=== PATIENT | male | born 1950 | race Caucasian/White ===

== ENCOUNTER → 2018-03-12 10:50 | Outpatient (CLI) | payer OTHER, SELFPAY ==
--- NOTE | 2018-03-12 | DI.MRI.S_ITS ---
PROCEDURE: MR KNEE RT WO CON INDICATIONS: PAIN IN RIGHT KNEE TECHNIQUE: Noncontrast sagittal PD fast spin echo and T2 fast spin echo with fat saturation, sagittal 3-D FLASH with fat saturation; coronal T1 spin echo and PD fast spin echo with fat saturation, and axial PD fast spin echo with fat saturation through the knee. COMPARISON: None. FINDINGS: Image quality: Excellent. Menisci: There is peripheral displacement of the medial meniscus bowing medial collateral ligament. Complex tear involving body and posterior horn of medial meniscus is seen extending to both superior and inferior articulating surfaces. There is also focal complex tear involving anterior horn of lateral meniscus extending to superior articulating surface. The meniscal root ligaments appear intact. Cruciate ligaments: The anterior and posterior cruciate ligaments appear intact. Medial structures: The medial collateral ligament appears intact. The posterior oblique ligament, semimembranosus tendon insertions, oblique popliteal ligament, and meniscocapsular junction appear intact. Visualized portions of the pes anserinus tendons appear normal. No abnormal bursal fluid. Lateral structures: The lateral collateral ligament, long and short heads of the biceps femoris tendon appear intact. The popliteus tendon appears normal; the popliteofibular ligament appears intact. The posterosuperior and anteroinferior popliteomeniscal fascicles appear intact. The arcuate and fabellofibular ligaments appear intact, on either side of the lateral inferior geniculate artery. Iliotibial band appears normal. Anterior structures: The quadriceps and patellar tendons appear intact. Patellar alignment is normal. No femoral trochlear dysplasia or ventral trochlear prominence. No edema in the infrapatellar fat pad. Bones and cartilage: There is wobw-[id number] tricompartment osteoarthritis most prominent in the medial femoral-tibial compartment with joint space narrowing, thinning of articulating cartilages and subchondral sclerosis/edema. There is edema and linear hypointensity involving weightbearing portion of medial tibial plateau, concerning for nondepressed subchondral fracture in this area.. Low-grade chondromalacia involving lateral facet of patella cartilage is seen. Joint space: There is small to moderate amount of joint fluid. No Mario's cyst. Normal appearing synovial plicae are incidentally noted. IMPRESSION: 1. Edema involving weightbearing portion of medial femoral condyle with internal linear hypointense signal and measures approximately 5 x 10 mm in size concerning for subchondral fracture in this area versus osteochondral injury. 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 Low-grade chondromalacia patella. 2. Complex tear involving body and posterior horn of medial meniscus extending to both superior and inferior articulating surfaces. Complex tear involving anterior horn of lateral meniscus extending to superior articulating surface. 3. Cruciate ligaments are intact. Dictated by: Paul Vernon M.D. on 03/12/2018 at 12:58 Approved by: Paul Vernon M.D. on 03/12/2018 at 13:04
== END ==
PROVIDERS: PCP Family Medicine; Visit Provider Family Medicine
DX: S83.271A Complex tear of lateral meniscus, current injury, right knee, initial encounter (principal); S83.231A Complex tear of medial meniscus, current injury, right knee, initial encounter; M25.561 Pain in right knee; M17.11 Unilateral primary osteoarthritis, right knee; M22.41 Chondromalacia patellae, right knee; R60.0 Localized edema
CPT/HCPCS: 73721

== ENCOUNTER → 2018-07-20 11:07 | Outpatient (CLI) | payer OTHER, SELFPAY ==
--- NOTE | 2018-07-20 | DI.MRI.S_ITS ---
PROCEDURE: MR LUMBAR SPINE WO CON INDICATIONS: POLYNEUROPATHY, Ankylosing spondylitis of unspecified sites TECHNIQUE: Noncontrast sagittal T1 spin echo and T2 fast echo, sagittal STIR, axial T1 and T2 fast spin echo through the lumbar spine. In cases with scoliosis, additional coronal T2 fast spin echo may be performed. COMPARISON: [facility], CT, IVP (ABD & PEL WWO CONTRAST), 08/03/2012, 9:14. FINDINGS: Image quality: Excellent. Alignment and Curvature: Mild dextroconvex scoliotic curvature is seen. Minimal retrolisthesis is seen at T12-L1 and L1-L2. Minimal anterolisthesis is seen at the L4-L5 level. Bone Marrow: Marrow is of normal overall signal. No acute vertebral body compression fractures. Scattered foci are seen, which are hyperintense on T1-weighted and T2-weighted imaging, which are most consistent with benign vertebral body hemangiomas. Sacral fatty metaplasia can be seen. Spinal Cord: Conus medullaris terminates at the T12-L1 level. Visualized cord demonstrates normal signal and size. Paraspinous Soft Tissues: No paravertebral masses. T12-L1: Moderate loss of disc height is seen. Loss of disc signal is seen. Moderate generalized disc bulge is seen. Moderate facet joint hypertrophy is seen. There is at least moderate bilateral neural foraminal narrowing seen. Moderate central canal narrowing is seen. L1-L2: Moderate loss of disc height is seen. Loss of disc signal is seen. At least moderate disc bulge is seen. Moderate facet joint hypertrophy is seen. There is at least moderate right-sided and moderate to severe left-sided neural foraminal narrowing seen. There is a degree of compression seen upon the exiting nerve roots. Moderate central canal narrowing is seen. L2-L3: Mild to moderate loss of disc height and disc signal are seen. Moderate disc bulge is seen, which is eccentric to the left. There is moderate to severe left-sided and moderate right-sided neural foraminal narrowing seen. There is a degree of compression seen upon the exiting left L2 nerve root. Severe central canal narrowing is seen, as on series 4 image 18. L3-L4: The disc height is well-preserved. Loss of disc signal is seen at this level. Moderate generalized disc bulge is seen. Moderate to prominent facet hypertrophy is seen. There is associated moderate hypertrophy of the ligamentum flavum. Moderate bilateral neural foraminal narrowing is seen, left worse than right. Severe central canal narrowing is seen, as on series 8 image 22. L4-L5: The disc height is well-preserved. Loss of disc signal is seen at this level. Moderate generalized disc bulge is seen. Prominent facet hypertrophy is seen, with associated moderate hypertrophy of the ligamentum flavum. There is at least moderate bilateral neural foraminal narrowing seen, left worse than right. There is a degree of compression seen upon the exiting nerve roots. Severe central canal narrowing is seen, as on series 8 image 27. L5-S1: Moderate loss of disc height is seen. Loss of disc signal is seen. Moderate disc bulge is seen, which is eccentric to the right. Bridging endplate osteophytes are seen on the right side. There is moderate left-sided and moderate to severe right-sided neural foraminal narrowing seen. There is a degree of compression seen upon the exiting right L5 nerve root. Moderate central canal narrowing is seen. IMPRESSION: Multiple levels of prominent lumbar spine degenerative change are seen, including severe central canal narrowing at L2-L3 and L3-L4. Moderate to severe neural foraminal narrowing can be seen at several levels, with associated nerve root compression. Dextroconvex lumbar scoliotic curvature is seen. Dictated by: Miles Henson M.D. on 07/20/2018 at 11:46 Approved by: Miles Henson M.D. on 07/20/2018 at 11:53
== END ==
PROVIDERS: PCP Family Medicine; Visit Provider Family Medicine
DX: G62.9 Polyneuropathy, unspecified (principal); M45.9 Ankylosing spondylitis of unspecified sites in spine; M47.816 Spondylosis without myelopathy or radiculopathy, lumbar region; M47.817 Spondylosis without myelopathy or radiculopathy, lumbosacral region; M48.061 Spinal stenosis, lumbar region without neurogenic claudication; M48.07 Spinal stenosis, lumbosacral region; M41.86 Other forms of scoliosis, lumbar region
CPT/HCPCS: 72148

== ENCOUNTER → 2019-02-22 09:01 | Outpatient (CLI) | payer OTHER, SELFPAY ==
--- NOTE | 2019-02-22 | DI.ECHO.S_ITS ---
[facility] +---------+ : : [address] : [address] : : : : [id number] : : : : Phone: [phone]+ Echocardiogram Report + + :Name: JUAN FUENTES Study Date: 02/22/2019 Height: 70 in : :[facility] Weight: 193 lb : : Gender: Male BSA: 2.1 m2 : :: 1950 Age: 68 yrs BP: 162/88 mmHg: :Reason For Study: Cardiomegaly : : Performed By: Carroll Jimenez : :Referring: KYLAH MOMIN : + + Interpretation Summary The left ventricle is normal in size. The ejection fraction is estimated to be 60-65%. Diastolic parameters suggest a pseudonormalization pattern, consistent with probable elevated filling pressures. The right ventricle is normal in size and function. No significant valvular pathology seen. The IVC is of normal diameter and collapses greater than 50% with a sniff. This suggests a low right atrial pressure of 3 mm Hg. Procedure: A two-dimensional transthoracic echocardiogram with color flow and Doppler was performed. The study quality was technically adequate. There is no prior echocardiogram noted for this patient. The patient was in normal sinus rhythm during the exam. Left Ventricle: The left ventricle is normal in size. There is moderate proximal septal thickening noted. There is no echo evidence for significant left ventricular outflow tract obstruction. There is no thrombus. Left ventricular systolic function is normal. The ejection fraction is estimated to be 60-65%. There are no focal wall motion abnormalities. Diastolic parameters suggest a pseudonormalization pattern, consistent with probable elevated filling pressures. Right Ventricle: The right ventricle is normal in size and function. Atria: The left atrium is moderately dilated. The right atrium is mildly dilated. The interatrial septum is intact with no evidence for an atrial septal defect. The thickening of interatrial septum suggests lipomatous hypertrophy. Mitral Valve: No systolic anterior motion of the mitral valve. There is mild mitral annular calcification. There is mild mitral regurgitation. Aortic Valve: The aortic valve is trileaflet. The aortic valve opens well. There is no aortic valve stenosis. No aortic regurgitation is present. Tricuspid Valve: The tricuspid valve is normal in structure and function. There is trace tricuspid regurgitation. Pulmonary artery pressures cannot be estimated because of the lack of a measurable TR jet velocity. Pulmonic Valve: The pulmonic valve is normal in structure and function. There is trace pulmonic regurgitation. Great Vessels: The aortic root is normal size. The ascending aorta could not be visualized. The pulmonary artery is normal size. The IVC is of normal diameter and collapses greater than 50% with a sniff. This suggests a low right atrial pressure of 3 mm Hg. Pericardium/ Pleura There is no pericardial effusion. There is no pleural effusion. MMode/2D Measurements & Calculations LVIDd: 4.2 cm LVOT diam: 2.3 cm LVIDs: 2.8 cm Ao root diam: 3.2 cm FS: 33.6 % EPSS: 0.40 cm IVSd: 1.6 cm LVPWd: 1.0 cm LV clay. diameter/BSA (cm/m^2): 2.0 LV sys. diameter/BSA (cm/m^2): 1.4 LA A2 area: 25.5 cm2 RA long axis: 5.7 cm LA A4 area: 26.3 cm2 RA area: 22.0 cm2 LA length (vol): 6.0 cm RA vol: 72.0 ml LA vol: 95.9 ml RA : 35.0 ml/m2 LA vol index: 46.6 ml/m2 TAPSE: 2.7 cm Doppler Measurements & Calculations Ao V2 max: 134.0 cm/sec LVOT Max Jayy: 128.7 cm/sec Ao V2 mean: 96.2 cm/sec LV V1 max P.6 mmHg Ao max P.2 mmHg LV V1 VTI: 32.4 cm Ao mean P.2 mmHg SO(I,D): 3.8 cm2 Ao V2 VTI: 34.7 cm SO(V,D): 3.9 cm2 sev ratio: 0.93 SO indexed to BSA (cm^2/m^2): 1.8 MV E max jayy: 92.6 cm/sec PA V2 max: 76.9 cm/sec MV A max jayy: 68.0 cm/sec PA V2 mean: 52.8 cm/sec MV E/A: 1.4 PA mean P.3 mmHg Med Peak E' Jayy: 6.0 cm/sec PA Accel Time: 0.11 sec E/E' med: 15.5 Lat Peak E' Jayy: 7.5 cm/sec E/E' lat: 12.4 E/e' average: 13.9 MV dec time: 0.21 sec SV(LVOT): 131.2 ml Reading Physician:09:16 PM
== END ==
PROVIDERS: PCP Family Medicine; Visit Provider Family Medicine
DX: I34.0 Nonrheumatic mitral (valve) insufficiency (principal); I51.7 Cardiomegaly
CPT/HCPCS: 93306

== ENCOUNTER → 2020-07-16 08:58 | Outpatient (CLI) | payer MEDICARE, SELFPAY ==
[2020-07-16 20:06] LABS: HEMOLYSIS < 15 (0-50); Potassium 4.4 mmol/L (3.4-5.1)
[2020-07-16 20:07] LABS: Alanine Aminotransferase 29 IU/L (<50); Albumin 4.2 g/dL (3.5-5.0); Albumin Globulin Ratio 1.5 (1.0-2.8); Alkaline Phosphatase 62 U/L (38-126); Aspartate Aminotransferase 41 IU/L (17-59); BUN Creatinine Ratio 19.8 (6-22); Bilirubin Total 0.5 mg/dL (0.2-1.3); Blood Urea Nitrogen 17 mg/dL (9-20); Calcium 10.2 mg/dL (8.4-10.2); Carbon Dioxide 28 mmol/L (22-32); Chloride 100 mmol/L (98-107); Estimated Glomerular Filt Rate > 60.0 mL/min (>60); Globulin 2.8 g/dL (1.7-4.1); Glucose 112 mg/dL (80-110); Sodium 136 mmol/L (137-145)
[2020-07-16 20:12] LABS: Add Manual Diff / Slide Review NO; Basophils Absolute Auto 0 /uL (0-100); Basophils Percent Auto 0.5 % (0-2); Eosinophils Absolute Auto 200 /uL (0-450); Hematocrit 43.9 % (41-53); Hemoglobin 15.2 g/dL (13.5-17.5); Lymphocytes Absolute Auto 1500 /uL (1100-4500); Lymphocytes Percent Auto 24.7 % (25-40); Mean Corpuscular HGB Conc 34.7 % (30-36); Mean Corpuscular Hemoglobin 31.8 PG (26-34); Mean Corpuscular Volume 91.6 fL (80-100); Monocytes Absolute Auto 500 /uL (0-900); Monocytes Percent Auto 8.9 % (3-14); Neutrophils Absolute Auto 3800 /uL (1500-7000); Neutrophils Percent Auto 62.9 % (50-75); Platelet Count 214 X10^3/uL (150-400); Red Blood Cell Count 4.79 X10^6/uL (4.5-5.9); Red Cell Distribution Width 12.5 % (11.6-14.8)
[2020-07-16 20:35] LABS: Ferritin 25 ng/mL (18-464)
== END ==
PROVIDERS: PCP Family Medicine; Visit Provider Physician Assistant
DX: E83.119 Hemochromatosis, unspecified (principal)
CPT/HCPCS: 80053; 82728; 85025

== ENCOUNTER → 2020-07-24 11:36 | Outpatient (CLI) | payer MEDICARE, SELFPAY ==
--- NOTE | 2020-07-24 11:38 | DI.MRI.S_ITS ---
PROCEDURE: MR LUMBAR SPINE WO CON INDICATIONS: progressing weakness and decrease of sensation TECHNIQUE: Noncontrast sagittal T1 spin echo and T2 fast echo, sagittal STIR, axial T1 and T2 fast spin echo through the lumbar spine. In cases with scoliosis, additional coronal T2 fast spin echo may be performed. COMPARISON: [facility], MR, MR LUMBAR SPINE WO CON, 07/20/2018, 11:25. FINDINGS: Image quality: Excellent. Alignment and Curvature: Trace anterolisthesis of L4 on L5. Bone Marrow: No evidence of acute fracture. Multilevel degenerative endplate sclerosis and spurring. Diffuse facet arthropathy. Spinal Cord: Conus medullaris terminates at the L1 level. Visualized cord demonstrates normal signal and size. Paraspinous Soft Tissues: No paravertebral masses. T12-L1: No canal or lateral recess narrowing. There is [id number] bilateral foraminal stenoses, grossly unchanged since 07/20/18. L1-L2: Dorsal epidural lipomatosis. Mild canal narrowing. Partial effacement of both lateral recesses with bilaterally symmetric appearance. Moderate right foraminal narrowing. Severe left foraminal stenosis, with no interval change since 07/20/18. L2-L3: Dorsal epidural lipomatosis and broad-based posterior disc bulge with severe canal narrowing. Partial effacement of both lateral recesses with bilaterally symmetric appearance. This appears grossly unchanged. Severe left foraminal stenosis with nerve root compression, and mild right foraminal narrowing. No interval change. L3-L4: Severe central canal narrowing. Near complete effacement of both lateral recesses with bilaterally symmetric appearance. Mild left foraminal narrowing. Moderate to severe right foraminal stenosis with slight nerve root compression and this may be slightly progressed since the prior study. L4-L5: Severe central canal narrowing. Complete effacement of both lateral recesses with bilaterally symmetric appearance. Mild to moderate right foraminal narrowing with slight nerve root compression. Severe left foraminal stenosis with nerve root compression , overall no interval change since the prior study. L5-S1: Moderate to severe canal narrowing. Near complete effacement of both lateral recesses with bilaterally symmetric appearance. Mild to moderate left foraminal narrowing which is unchanged. Severe right foraminal stenosis with nerve root compression although unchanged appearance. IMPRESSION: Slight interval progression in right foraminal stenosis at L3-L4 since the prior study otherwise grossly unchanged examination since 07/20/18. Multilevel high-grade canal stenoses as before. Dictated by: Kurt Rojas M.D. on 07/24/2020 at 13:30 Approved by: Kurt Rojas M.D. on 07/24/2020 at 13:38
== END ==
PROVIDERS: PCP Physician Assistant; Referring Provider Physician Assistant; Visit Provider Physician Assistant
DX: M45.6 Ankylosing spondylitis lumbar region (principal); G62.9 Polyneuropathy, unspecified; M62.81 Muscle weakness (generalized); M48.061 Spinal stenosis, lumbar region without neurogenic claudication; M48.07 Spinal stenosis, lumbosacral region
CPT/HCPCS: 72148

== ENCOUNTER → 2021-01-23 09:08 | Outpatient (CLI) | payer MEDICARE, SELFPAY ==
[2021-01-23 19:28] LABS: Add Manual Diff / Slide Review NO; Basophils Absolute Auto 0 /uL (0-100); Basophils Percent Auto 0.8 % (0-2); Eosinophils Absolute Auto 200 /uL (0-450); Eosinophils Percent Auto 2.8 % (2-4); Hematocrit 41.9 % (41-53); Hemoglobin 14.7 g/dL (13.5-17.5); Lymphocytes Absolute Auto 1500 /uL (1100-4500); Lymphocytes Percent Auto 24.3 % (25-40); Mean Corpuscular HGB Conc 35.1 % (30-36); Mean Corpuscular Hemoglobin 31.8 PG (26-34); Mean Corpuscular Volume 90.6 fL (80-100); Monocytes Absolute Auto 600 /uL (0-900); Monocytes Percent Auto 10.3 % (3-14); Neutrophils Absolute Auto 3800 /uL (1500-7000); Neutrophils Percent Auto 61.8 % (50-75); Platelet Count 236 X10^3/uL (150-400); Red Blood Cell Count 4.62 X10^6/uL (4.5-5.9); Red Cell Distribution Width 12.9 % (11.6-14.8); White Blood Cell Count 6.2 X10^3/uL (4.5-11.0)
[2021-01-23 19:37] LABS: Alanine Aminotransferase 40 IU/L (<50); Albumin 4.2 g/dL (3.5-5.0); Albumin Globulin Ratio 1.6 (1.0-2.8); Alkaline Phosphatase 50 U/L (38-126); Aspartate Aminotransferase 53 IU/L (17-59); BUN Creatinine Ratio 19.3 (6-22); Bilirubin Total 0.7 mg/dL (0.2-1.3); Blood Urea Nitrogen 16 mg/dL (9-20); Calcium 10.1 mg/dL (8.4-10.2); Carbon Dioxide 30 mmol/L (22-32); Chloride 97 mmol/L (98-107); Estimated Glomerular Filt Rate > 60.0 mL/min (>60); Globulin 2.7 g/dL (1.7-4.1); Glucose 123 mg/dL (80-110); HEMOLYSIS < 15 (0-50); Potassium 4.2 mmol/L (3.4-5.1); Sodium 135 mmol/L (137-145); Total Protein 6.9 g/dL (6.3-8.2)
[2021-01-23 20:10] LABS: Ferritin 24 ng/mL (18-464)
== END ==
PROVIDERS: PCP Physician Assistant; Visit Provider Physician Assistant
DX: E83.119 Hemochromatosis, unspecified (principal)
CPT/HCPCS: 80053; 82728; 85025

== ENCOUNTER → 2021-07-10 15:26 | Outpatient (CLI) | payer MEDICARE, SELFPAY ==
[2021-07-10 17:21] LABS: COVID19 -Nasal RAPID Negative (Negative)
== END ==
PROVIDERS: PCP Physician Assistant; Visit Provider Surgery
DX: Z01.812 Encounter for preprocedural laboratory examination (principal); Z20.822 Contact with and (suspected) exposure to COVID-19
CPT/HCPCS: 87635; C9803

== ENCOUNTER 2021-07-11 08:28 | Day surgery (SDC) | payer MEDICARE, SELFPAY ==
[2021-07-11] MEDS: LACTATED RINGERS 1,000 ML 42 ML IV (08:37)
[2021-07-11 08:44] VITALS: BP 199/98; PULSE 88; RESP 16; TEMP 36.6; O2SAT 98; BMI 21.5
--- NOTE | 2021-07-11 09:45 | PM.HP.1 ---
History of Present Illness History of Present Illness Date Patient Seen: 07/11/21 Time Patient Seen: 09:48 Chief complaint: DX COLONOSCOPY Narrative: Tina is a 71-year-old man who had a recent positive Cologuard test. He has had a colonoscopy at some point the distant past. Patient History Family & Social History Social History: household members spouse Tobacco & Substance use: Smoking Status Never smoker alcohol intake current alcohol intake frequency 0-2 drinks per day Substance Use Type does not use Meds Home Medications and Allergies Home Medications Medication Instructions Recorded Confirmed Type tadalafil 20 mg tablet 20 mg PO DAILY PRN 07/11/20 07/11/21 History hydrochlorothiazide 25 mg tablet 25 mg PO DAILY #90 tab 07/16/20 07/11/21 Rx losartan 100 mg tablet 100 mg PO DAILY #90 tab 07/16/20 07/11/21 Rx metoprolol succinate 50 mg 50 mg PO QDAY #90 tab 07/16/20 01/23/21 Rx tablet,extended release 24 hr naproxen 500 mg tablet 500 mg PO BID PRN #180 tab 07/16/20 01/23/21 Rx omeprazole 20 mg capsule,delayed 20 mg PO DAILY #90 cap 07/16/20 01/23/21 Rx release melatonin 3 mg tablet 6 mg PO BEDTIME tab 01/23/21 07/11/21 History papaverine 150 mg-phentolamin 5 ml INTRA-CAVERNOSAL 01/23/21 01/23/21 History mg-alprost 50 mcg intracavernosal soln (Tri-Mix ([id number])) Allergies Allergy/AdvReac Type Severity Reaction Status Date / Time Sulfa (Sulfonamide Allergy Mild Verified 07/11/21 08:24 Antibiotics) Exam Vital Signs (past 8 hours): - 07/11/21 08:44 Temperature 97.9 F Pulse Rate 88 Respiratory Rate 16 Blood Pressure 199/98 H Pulse Oximetry 98 Oxygen Delivery Method Room Air Const General: comfortable Resp Effort & Inspection: normal respiratory effort GI Palpation: soft Assessment & Plan Assessment and plan (1) Positive colorectal cancer screening using Cologuard test: Status: Acute Plan Described risks and benefits of colonoscopy and he would like to proceed. COVID-19 COVID-19 status: Negative Result date/Date tested (Pos, Neg/Pending): 07/10/21 Time Spent With Patient Critical Care time: I spent a total of [] minutes of critical care time on this patient's care today; this time is exclusive of procedural time.
[2021-07-11] MEDS: MIDAZOLAM 5 MG/5 ML VIAL IV (09:58)
[2021-07-11] MEDS: fentaNYL 250 MCG/5 ML INJ 125 MCG IV (09:58)
--- NOTE | 2021-07-11 10:26 | P.OP.COLON_ITS ---
Operative Date/Time/Diagnoses Date of procedure: 07/11/21 Time of procedure: 10:26 Pre-op diagnosis: Positive Cologuard test Post-op diagnosis: same Procedure & Clinicians Study performed: Colonoscopy Same procedure as scheduled: Yes Procedure Notes Procedure in detail: Surgeon: Gibson Raza MD Procedure: The patient was brought to the endoscopy suite, placed in left lateral decubitus position. The patient was connected to monitoring devices. A time-out was performed. Sedation was administered. Once the patient was adequately sedated, a digital rectal exam was performed and was normal. The scope was then inserted and advanced to the cecum where the appendiceal orifice was identified and photographed. The scope was then slowly withdrawn over greater than 6 minutes. Mucosa was thoroughly inspected. No abnormalities were noted The scope was retroflexed in the rectum. No abnormalities were noted ot her than some mild internal hemorrhoids. The scope was straightened and removed. The patient was awakened and brought to recovery. Versed: 5 mg Fentanyl: 125 mcg EBL: 0 Findings: Normal colon Scope withdrawal time: 9 Sedation minutes: 25 Post-procedure Recommendations: Colonoscopy in 10 years Disposition: PACU
[2021-07-11 10:28] VITALS: BP 124/77; PULSE 63; RESP 16; TEMP 36.2; O2SAT 97
[2021-07-11 10:34] VITALS: BP 128/77; PULSE 71; RESP 16; O2SAT 98
[2021-07-11 10:38] VITALS: BP 132/65; PULSE 77; RESP 16; TEMP 36.8; O2SAT 99
[2021-07-11 10:50] VITALS: BP 139/73; PULSE 65; RESP 16; TEMP 36.9; O2SAT 98
[2021-07-11 11:10] VITALS: BP 135/79; PULSE 64; RESP 16; TEMP 36.6; O2SAT 96
== END 2021-07-11 11:13 | disposition home or self-care (01) ==
PROVIDERS: PCP Physician Assistant; Referring Provider Surgery; Visit Provider Surgery
PROC: 0DJD8ZZ Inspection of Lower Intestinal Tract, Via Natural or Artificial Opening Endoscopic (ICD-10-PCS; CPT 45378; principal; 2021-07-11 10:00)
DX: R19.5 Other fecal abnormalities (principal); K64.8 Other hemorrhoids
CPT/HCPCS: 45378; 99152; J2250; J3010

== ENCOUNTER → 2021-10-21 08:50 | Outpatient (CLI) | payer MEDICARE, SELFPAY ==
[2021-10-21 19:26] LABS: Add Manual Diff / Slide Review NO; Basophils Absolute Auto 0 /uL (0-100); Basophils Percent Auto 0.8 % (0-2); Eosinophils Absolute Auto 200 /uL (0-450); Eosinophils Percent Auto 2.9 % (2-4); Hemoglobin 14.8 g/dL (13.5-17.5); Lymphocytes Absolute Auto 1300 /uL (1100-4500); Lymphocytes Percent Auto 22.2 % (25-40); Mean Corpuscular Hemoglobin 32.1 PG (26-34); Monocytes Absolute Auto 500 /uL (0-900); Monocytes Percent Auto 8.9 % (3-14); Neutrophils Absolute Auto 3800 /uL (1500-7000); Neutrophils Percent Auto 65.2 % (50-75); Platelet Count 194 X10^3/uL (150-400); Red Cell Distribution Width 12.6 % (11.6-14.8); White Blood Cell Count 5.8 X10^3/uL (4.5-11.0)
[2021-10-21 19:39] LABS: Alanine Aminotransferase 31 IU/L (<50); Albumin 4.1 g/dL (3.5-5.0); Albumin Globulin Ratio 1.5 (1.0-2.8); Alkaline Phosphatase 51 U/L (38-126); Aspartate Aminotransferase 37 IU/L (17-59); BUN Creatinine Ratio 25.6 (6-22); Bilirubin Total 0.7 mg/dL (0.2-1.3); Blood Urea Nitrogen 22 mg/dL (9-20); Calcium 9.6 mg/dL (8.4-10.2); Carbon Dioxide 30 mmol/L (22-32); Chloride 98 mmol/L (98-107); Estimated Glomerular Filt Rate > 60 mL/min (>60); Globulin 2.8 g/dL (1.7-4.1); Glucose 131 mg/dL (80-110); HEMOLYSIS < 15 (0-50); Potassium 4.1 mmol/L (3.4-5.1); Sodium 135 mmol/L (137-145); Total Protein 6.9 g/dL (6.3-8.2)
[2021-10-21 20:14] LABS: Ferritin 29 ng/mL (18-464)
== END ==
PROVIDERS: PCP Physician Assistant; Visit Provider Physician Assistant
DX: E83.119 Hemochromatosis, unspecified (principal); I10 Essential (primary) hypertension
CPT/HCPCS: 80053; 82728; 85025

== ENCOUNTER → 2021-11-13 14:54 | Outpatient (CLI) | payer MEDICARE, SELFPAY ==
--- NOTE | 2021-11-13 15:20 | DI.MRI.S_ITS ---
PROCEDURE: MR CERVICAL SPINE WO CON INDICATIONS: neck pain, stiffness, w/ left UE paresthesias TECHNIQUE: Noncontrast sagittal T1 spin echo and T2 fast spin echo, sagittal STIR, foraminal oblique sagittal T2 fast spin echo, and axial gradient echo or T2 fast spin echo through the cervical spine. COMPARISON: None. FINDINGS: Image quality: Excellent. Alignment and Curvature: There is 3 mm anterolisthesis of C2 on C3, C3 on C4, T1 on T2, T2 on T3, 3 mm retrolisthesis of C5 on C6, C6 on C7, Bone Marrow: Marrow demonstrates normal overall signal. Spinal Cord: Visualized spinal cord has normal size and signal. No cerebellar tonsillar herniation. Paraspinous Soft Tissues: No paravertebral masses. Prevertebral soft tissues are normal in thickness. Discs: Moderate to severe multilevel disc desiccation is present most severe at C5-6 and C6-7. C2-C3: Mild disc bulge with mild spinal stenosis. Moderate bilateral foraminal narrowing with uncovertebral hypertrophy. C3-C4: Mild disc bulge with mild spinal stenosis. Severe left and moderate right foraminal narrowing with uncovertebral hypertrophy. C4-C5: Mild disc bulge with wnqz-hj-pcwokiyl spinal stenosis. Severe left and mild right foraminal narrowing with uncovertebral hypertrophy. C5-C6: Mild disc bulge with moderate spinal stenosis. Severe left and moderate right foraminal narrowing with uncovertebral hypertrophy. C6-C7: Mild disc bulge with moderate to severe spinal stenosis. Severe right and moderate to severe left foraminal narrowing with uncovertebral hypertrophy. C7-T1: Mild disc bulge without spinal stenosis. Moderate right foraminal narrowing. IMPRESSION: Multilevel disc bulges. Multilevel moderate to severe foraminal narrowing most significant at C3-4, C4-5 and C5-6 and C6-7 secondary to uncovertebral arthropathy. Multilevel foraminal narrowing most severe at C6-7 secondary to disc bulge. Dictated by: Mary Jo Cruz M.D. on 11/13/2021 at 16:38 Approved by: Mary Jo Cruz M.D. on 11/13/2021 at 16:44
== END ==
PROVIDERS: PCP Physician Assistant; Referring Provider Physician Assistant; Visit Provider Physician Assistant
DX: M50.11 Cervical disc disorder with radiculopathy, high cervical region (principal); M48.02 Spinal stenosis, cervical region; M45.9 Ankylosing spondylitis of unspecified sites in spine
CPT/HCPCS: 72141

== ENCOUNTER → 2022-03-10 08:18 | Outpatient (CLI) | payer MEDICARE, SELFPAY ==
[2022-03-10 20:14] LABS: Alanine Aminotransferase 32 IU/L (<50); Albumin 4.4 g/dL (3.5-5.0); Albumin Globulin Ratio 1.4 (1.0-2.8); Alkaline Phosphatase 56 U/L (38-126); Aspartate Aminotransferase 38 IU/L (17-59); BUN Creatinine Ratio 22.5 (6-22); Bilirubin Total 0.7 mg/dL (0.2-1.3); Blood Urea Nitrogen 20 mg/dL (9-20); Calcium 9.8 mg/dL (8.4-10.2); Carbon Dioxide 28 mmol/L (22-32); Chloride 99 mmol/L (98-107); Cholesterol 189 mg/dL (140-199); Estimated Glomerular Filt Rate > 60 mL/min (>60); Globulin 3.1 g/dL (1.7-4.1); Glucose 134 mg/dL (80-110); HDL Cholesterol 49 mg/dL (40-60); HEMOLYSIS < 15 (0-50); LDL Cholesterol Calculated 95 mg/dL (<100); Potassium 4.3 mmol/L (3.4-5.1); Sodium 136 mmol/L (137-145); Total Protein 7.5 g/dL (6.3-8.2); Triglycerides 225 mg/dL (35-150)
[2022-03-10 20:18] LABS: Add Manual Diff / Slide Review NO; Basophils Absolute Auto 100 /uL (0-100); Basophils Percent Auto 0.9 % (0-2); Eosinophils Absolute Auto 100 /uL (0-450); Eosinophils Percent Auto 2.4 % (2-4); Hematocrit 40.3 % (41-53); Hemoglobin 14.4 g/dL (13.5-17.5); Lymphocytes Absolute Auto 1500 /uL (1100-4500); Lymphocytes Percent Auto 25.7 % (25-40); Mean Corpuscular HGB Conc 35.7 % (30-36); Mean Corpuscular Hemoglobin 31.6 PG (26-34); Mean Corpuscular Volume 88.4 fL (80-100); Monocytes Absolute Auto 600 /uL (0-900); Monocytes Percent Auto 9.5 % (3-14); Neutrophils Absolute Auto 3600 /uL (1500-7000); Neutrophils Percent Auto 61.5 % (50-75); Platelet Count 216 X10^3/uL (150-400); Red Blood Cell Count 4.56 X10^6/uL (4.5-5.9); Red Cell Distribution Width 13.1 % (11.6-14.8); White Blood Cell Count 5.9 X10^3/uL (4.5-11.0)
[2022-03-10 20:31] LABS: Hemoglobin A1C% w Est Avg Glu 5.5 % (4.0-6.0)
[2022-03-10 20:36] LABS: Prostate Specific Antigen Scrn 0.877 ng/mL (0.1-4.0)
[2022-03-10 20:49] LABS: Ferritin 33 ng/mL (18-464)
== END ==
PROVIDERS: PCP Physician Assistant; Visit Provider Physician Assistant
DX: E83.119 Hemochromatosis, unspecified (principal); I10 Essential (primary) hypertension; Z13.6 Encounter for screening for cardiovascular disorders; Z79.899 Other long term (current) drug therapy; R73.9 Hyperglycemia, unspecified; Z12.5 Encounter for screening for malignant neoplasm of prostate
CPT/HCPCS: 80053; 80061; 82728; 83036; 85025; G0103

== ENCOUNTER → 2022-06-30 08:55 | Outpatient (CLI) | payer MEDICARE, SELFPAY ==
[2022-06-30 19:38] LABS: Add Manual Diff / Slide Review NO; Basophils Absolute Auto 0 /uL (0-100); Basophils Percent Auto 0.7 % (0-2); Eosinophils Absolute Auto 100 /uL (0-450); Eosinophils Percent Auto 2.3 % (2-4); HEMOLYSIS < 15 (0-50); Hematocrit 39.9 % (41-53); Hemoglobin 14.2 g/dL (13.5-17.5); Lymphocytes Absolute Auto 1200 /uL (1100-4500); Lymphocytes Percent Auto 22.4 % (25-40); Mean Corpuscular HGB Conc 35.5 % (30-36); Mean Corpuscular Hemoglobin 32.2 PG (26-34); Mean Corpuscular Volume 90.6 fL (80-100); Monocytes Absolute Auto 500 /uL (0-900); Monocytes Percent Auto 9.9 % (3-14); Neutrophils Absolute Auto 3600 /uL (1500-7000); Neutrophils Percent Auto 64.7 % (50-75); Platelet Count 219 X10^3/uL (150-400); Red Cell Distribution Width 12.8 % (11.6-14.8); White Blood Cell Count 5.5 X10^3/uL (4.5-11.0)
[2022-06-30 19:43] LABS: Alanine Aminotransferase 51 IU/L (<50); Albumin 4.3 g/dL (3.5-5.0); Albumin Globulin Ratio 1.5 (1.0-2.8); Alkaline Phosphatase 54 U/L (38-126); Aspartate Aminotransferase 77 IU/L (17-59); Bilirubin Total 0.8 mg/dL (0.2-1.3); Blood Urea Nitrogen 17 mg/dL (9-20); Calcium 9.6 mg/dL (8.4-10.2); Carbon Dioxide 30 mmol/L (22-32); Chloride 97 mmol/L (98-107); Cholesterol 189 mg/dL (140-199); Estimated Glomerular Filt Rate > 60 mL/min (>60); Globulin 2.9 g/dL (1.7-4.1); Glucose 131 mg/dL (80-110); HDL Cholesterol 52 mg/dL (40-60); LDL Cholesterol Calculated 106 mg/dL (<100); Potassium 4.6 mmol/L (3.4-5.1); Sodium 133 mmol/L (137-145); Total Protein 7.2 g/dL (6.3-8.2); Triglycerides 156 mg/dL (35-150)
[2022-06-30 19:57] LABS: Erythrocyte Sedimentation Rate 5 MM/HR (0-15)
[2022-07-01 14:06] LABS: Rheumatoid Factor < 8.6 IU/mL (<12.0)
[2022-07-01 17:45] LABS: Ferritin 34 ng/mL (18-464)
[2022-07-02 05:13] LABS: Labcorp Hemoglobin (Hb) A1c 5.5 % (4.8-5.6)
[2022-07-06 03:04] LABS: CCP Antibodies IgG/IgA 4 units (0-19)
== END ==
PROVIDERS: PCP Physician Assistant; Visit Provider Physician Assistant
DX: E83.119 Hemochromatosis, unspecified (principal); M54.9 Dorsalgia, unspecified; M62.81 Muscle weakness (generalized); G62.9 Polyneuropathy, unspecified; D64.9 Anemia, unspecified; E78.1 Pure hyperglyceridemia; R73.9 Hyperglycemia, unspecified
CPT/HCPCS: 80053; 80061; 82728; 83036; 85025; 85651; 86200; 86430

== ENCOUNTER → 2022-08-11 08:49 | Outpatient (CLI) | payer MEDICARE, SELFPAY ==
[2022-08-11 19:40] LABS: Add Manual Diff / Slide Review NO; Basophils Absolute Auto 0 /uL (0-100); Basophils Percent Auto 0.8 % (0-2); Eosinophils Absolute Auto 200 /uL (0-450); Eosinophils Percent Auto 2.9 % (2-4); Hematocrit 38.1 % (41-53); Hemoglobin 13.7 g/dL (13.5-17.5); Lymphocytes Absolute Auto 1100 /uL (1100-4500); Lymphocytes Percent Auto 20.7 % (25-40); Mean Corpuscular HGB Conc 36.1 % (30-36); Mean Corpuscular Hemoglobin 31.9 PG (26-34); Mean Corpuscular Volume 88.5 fL (80-100); Monocytes Absolute Auto 600 /uL (0-900); Monocytes Percent Auto 10.5 % (3-14); Neutrophils Absolute Auto 3600 /uL (1500-7000); Neutrophils Percent Auto 65.1 % (50-75); Platelet Count 206 X10^3/uL (150-400); Red Cell Distribution Width 12.4 % (11.6-14.8); White Blood Cell Count 5.5 X10^3/uL (4.5-11.0)
[2022-08-11 19:44] LABS: HEMOLYSIS < 15 (0-50); Iron 122 ug/dL (49-181)
[2022-08-11 19:45] LABS: Alanine Aminotransferase 45 IU/L (<50); Albumin 3.9 g/dL (3.5-5.0); Albumin Globulin Ratio 1.4 (1.0-2.8); Alkaline Phosphatase 53 U/L (38-126); Aspartate Aminotransferase 47 IU/L (17-59); Bilirubin Total 0.6 mg/dL (0.2-1.3); Blood Urea Nitrogen 23 mg/dL (9-20); Calcium 9.5 mg/dL (8.4-10.2); Carbon Dioxide 27 mmol/L (22-32); Chloride 98 mmol/L (98-107); Estimated Glomerular Filt Rate > 60 mL/min (>60); Globulin 2.7 g/dL (1.7-4.1); Glucose 115 mg/dL (80-110); HEMOLYSIS < 15 (0-50); Potassium 4.1 mmol/L (3.4-5.1); Sodium 131 mmol/L (137-145); Total Protein 6.6 g/dL (6.3-8.2)
[2022-08-11 19:55] LABS: Percent Iron Saturation 50 % (20-50); Total Iron Binding Capacity 245 ug/dL (261-462); Transferrin 168 mg/dL (206-381)
[2022-08-11 20:23] LABS: Ferritin 31 ng/mL (18-464)
[2022-08-13 03:15] LABS: x Labcorp Estim. Avg Glu (eAG) 108 mg/dL (.); x Labcorp Hemoglobin A1c 5.4 % (4.8-5.6)
== END ==
PROVIDERS: PCP Physician Assistant; Visit Provider Physician Assistant
DX: E83.119 Hemochromatosis, unspecified (principal); D64.9 Anemia, unspecified; I10 Essential (primary) hypertension; R79.89 Other specified abnormal findings of blood chemistry
CPT/HCPCS: 80053; 82728; 83036; 83540; 83550; 85025

== ENCOUNTER → 2022-08-14 09:26 | Outpatient (CLI) | payer MEDICARE, SELFPAY ==
[2022-08-18 17:06] LABS: Fecal Immunochemical Test Negative (Negative)
== END ==
PROVIDERS: PCP Physician Assistant; Visit Provider Physician Assistant
DX: D64.9 Anemia, unspecified (principal)
CPT/HCPCS: 82274

== ENCOUNTER → 2023-01-27 08:49 | Outpatient (CLI) | payer MEDICARE, SELFPAY ==
[2023-01-27 19:17] LABS: Alanine Aminotransferase 34 IU/L (<50); Albumin Globulin Ratio 1.4 (1.0-2.8); Alkaline Phosphatase 55 U/L (38-126); Aspartate Aminotransferase 40 IU/L (17-59); BUN Creatinine Ratio 24.4 (6-22); Bilirubin Total 0.8 mg/dL (0.2-1.3); Blood Urea Nitrogen 22 mg/dL (9-20); Carbon Dioxide 27 mmol/L (22-32); Chloride 99 mmol/L (98-107); Estimated Glomerular Filt Rate > 60 mL/min (>60); Globulin 2.9 g/dL (1.7-4.1); Glucose 141 mg/dL (80-110); HEMOLYSIS < 15 (0-50); Potassium 4.1 mmol/L (3.4-5.1); Sodium 132 mmol/L (137-145); Total Protein 6.9 g/dL (6.3-8.2)
[2023-01-27 19:22] LABS: Appearance Urine UA CLEAR; Bilirubin Urine UA NEGATIVE (NEGATIVE); Color Urine UA YELLOW; Glucose Urine UA NEGATIVE (Negative); Ketones Urine UA TRACE (NEGATIVE); Leukocyte Esterase Urine UA NEGATIVE (NEGATIVE); Nitrite Urine UA NEGATIVE (Negative); Occult Blood Urine UA NEGATIVE (Negative); Protein Urine UA NEGATIVE (Negative); pH Urine UA 6.5 (4.5-8.0)
[2023-01-27 19:24] LABS: Add Manual Diff / Slide Review NO; Basophils Absolute Auto 0 /uL (0-100); Basophils Percent Auto 0.3 % (0-2); Eosinophils Absolute Auto 200 /uL (0-450); Hematocrit 40.6 % (41-53); Hemoglobin 14.2 g/dL (13.5-17.5); Lymphocytes Absolute Auto 1300 /uL (1100-4500); Mean Corpuscular HGB Conc 35.1 % (30-36); Mean Corpuscular Hemoglobin 31.8 PG (26-34); Mean Corpuscular Volume 90.8 fL (80-100); Monocytes Absolute Auto 600 /uL (0-900); Monocytes Percent Auto 9.5 % (3-14); Neutrophils Absolute Auto 3800 /uL (1500-7000); Neutrophils Percent Auto 64.2 % (50-75); Platelet Count 223 X10^3/uL (150-400); Red Blood Cell Count 4.47 X10^6/uL (4.5-5.9); Red Cell Distribution Width 12.8 % (11.6-14.8)
[2023-01-27 19:52] LABS: Ferritin 32 ng/mL (18-464)
[2023-01-27 20:08] LABS: Bacteria Urine None Seen; Culture Indicated Urine Cult Not Indicated; RBC Urine None Seen (0-5/HPF); Squamous Epithelial Cell Urine None Seen (0-5/HPF); WBC Urine None Seen (0-5/HPF)
== END ==
PROVIDERS: PCP Physician Assistant; Visit Provider Physician Assistant
DX: E83.119 Hemochromatosis, unspecified (principal); R79.89 Other specified abnormal findings of blood chemistry; D64.9 Anemia, unspecified; E87.1 Hypo-osmolality and hyponatremia
CPT/HCPCS: 80053; 81001; 82728; 85025

== ENCOUNTER → 2023-06-08 08:51 | Outpatient (CLI) | payer MEDICARE, SELFPAY ==
[2023-06-08 19:19] LABS: Add Manual Diff / Slide Review NO; Basophils Absolute Auto 100 /uL (0-100); Basophils Percent Auto 0.8 % (0-2); Eosinophils Absolute Auto 200 /uL (0-450); Eosinophils Percent Auto 2.4 % (2-4); Hemoglobin 14.3 g/dL (13.5-17.5); Lymphocytes Absolute Auto 1500 /uL (1100-4500); Lymphocytes Percent Auto 23.2 % (25-40); Mean Corpuscular HGB Conc 35.6 % (30-36); Mean Corpuscular Hemoglobin 32.3 PG (26-34); Mean Corpuscular Volume 90.9 fL (80-100); Monocytes Absolute Auto 600 /uL (0-900); Monocytes Percent Auto 9.6 % (3-14); Neutrophils Absolute Auto 4100 /uL (1500-7000); Platelet Count 215 X10^3/uL (150-400); Red Blood Cell Count 4.41 X10^6/uL (4.5-5.9); Red Cell Distribution Width 13.4 % (11.6-14.8); White Blood Cell Count 6.4 X10^3/uL (4.5-11.0)
[2023-06-08 19:50] LABS: HEMOLYSIS < 15 (0-50)
[2023-06-08 19:55] LABS: Alanine Aminotransferase 38 IU/L (<50); Albumin 3.9 g/dL (3.5-5.0); Albumin Globulin Ratio 1.3 (1.0-2.8); Alkaline Phosphatase 58 U/L (38-126); Aspartate Aminotransferase 45 IU/L (17-59); BUN Creatinine Ratio 25.3 (6-22); Bilirubin Total 0.9 mg/dL (0.2-1.3); Blood Urea Nitrogen 20 mg/dL (9-20); Calcium 10.1 mg/dL (8.4-10.2); Carbon Dioxide 26 mmol/L (22-32); Chloride 101 mmol/L (98-107); Estimated Glomerular Filt Rate > 60 mL/min (>60); Globulin 2.9 g/dL (1.7-4.1); Glucose 126 mg/dL (80-110); Potassium 3.9 mmol/L (3.4-5.1); Sodium 134 mmol/L (137-145); Total Protein 6.8 g/dL (6.3-8.2)
[2023-06-08 20:19] LABS: TSH w/ Reflex to FT4 1.67 uIU/mL (0.47-4.68)
[2023-06-08 20:32] LABS: Ferritin 33 ng/mL (18-464)
[2023-06-08 21:20] LABS: Troponin I < 0.012 ng/mL (0.01-0.034)
[2023-06-11 14:46] LABS: Prostate Specific Antigen Scrn 0.956 ng/mL (0.1-4.0)
== END ==
PROVIDERS: PCP Physician Assistant; Visit Provider Physician Assistant
DX: Z12.5 Encounter for screening for malignant neoplasm of prostate (principal); D64.9 Anemia, unspecified; E87.1 Hypo-osmolality and hyponatremia; I10 Essential (primary) hypertension; E83.119 Hemochromatosis, unspecified; R00.2 Palpitations; R94.31 Abnormal electrocardiogram [ECG] [EKG]
CPT/HCPCS: 80053; 82728; 84443; 84484; 85025; G0103

== ENCOUNTER → 2023-12-02 09:06 | Outpatient (CLI) | payer MEDICARE, SELFPAY ==
[2023-12-02 19:06] LABS: Add Manual Diff / Slide Review NO; Basophils Absolute Auto 100 /uL (0-100); Basophils Percent Auto 0.9 % (0-2); Eosinophils Absolute Auto 200 /uL (0-450); Eosinophils Percent Auto 2.8 % (2-4); Hematocrit 40.8 % (41-53); Hemoglobin 14.5 g/dL (13.5-17.5); Lymphocytes Absolute Auto 1300 /uL (1100-4500); Lymphocytes Percent Auto 21.2 % (25-40); Mean Corpuscular HGB Conc 35.4 % (30-36); Mean Corpuscular Hemoglobin 32.2 PG (26-34); Monocytes Absolute Auto 600 /uL (0-900); Neutrophils Absolute Auto 3900 /uL (1500-7000); Neutrophils Percent Auto 65.1 % (50-75); Platelet Count 207 X10^3/uL (150-400); Red Blood Cell Count 4.49 X10^6/uL (4.5-5.9); Red Cell Distribution Width 12.9 % (11.6-14.8); White Blood Cell Count 6.1 X10^3/uL (4.5-11.0)
[2023-12-02 20:16] LABS: Hemoglobin A1C% w Est Avg Glu 5.3 % (4.0-6.0)
[2023-12-02 20:53] LABS: Alanine Aminotransferase 33 IU/L (<50); Albumin 4.4 g/dL (3.5-5.0); Albumin Globulin Ratio 1.6 (1.0-2.8); Alkaline Phosphatase 55 U/L (38-126); Aspartate Aminotransferase 42 IU/L (17-59); BUN Creatinine Ratio 23.8 (6-22); Blood Urea Nitrogen 20 mg/dL (9-20); Calcium 9.9 mg/dL (8.4-10.2); Carbon Dioxide 26 mmol/L (22-32); Chloride 99 mmol/L (98-107); Cholesterol 193 mg/dL (140-199); Estimated Glomerular Filt Rate > 60 mL/min (>60); Globulin 2.7 g/dL (1.7-4.1); Glucose 135 mg/dL (80-110); HDL Cholesterol 51 mg/dL (40-60); HEMOLYSIS < 15 (0-50); LDL Cholesterol Calculated 109 mg/dL (<100); Magnesium 1.6 mg/dL (1.6-2.3); Potassium 4.3 mmol/L (3.4-5.1); Sodium 132 mmol/L (137-145); Total Protein 7.1 g/dL (6.3-8.2); Triglycerides 167 mg/dL (35-150)
[2023-12-02 21:11] LABS: Prostate Specific Antigen Scrn 1.14 ng/mL (0.1-4.0)
[2023-12-02 21:15] LABS: Ferritin 36 ng/mL (18-464)
[2023-12-03 04:02] LABS: HEMOLYSIS < 15 (0-50); Iron 227 ug/dL (49-181)
[2023-12-03 04:19] LABS: Total Iron Binding Capacity 203 ug/dL (261-462); Transferrin 184 mg/dL (206-381)
[2023-12-03 04:34] LABS: Percent Iron Saturation 112 % (20-50)
[2023-12-03 05:10] LABS: Folate 2.8 ng/mL (2.76-20.0); Vitamin B12 243 pg/mL (239-931)
[2023-12-03 19:42] LABS: Hep C Virus Ab w/Reflex Quant NEGATIVE s/c (NEGATIVE)
== END ==
PROVIDERS: PCP Physician Assistant; Visit Provider Physician Assistant
DX: Z12.5 Encounter for screening for malignant neoplasm of prostate (principal); R73.9 Hyperglycemia, unspecified; E87.1 Hypo-osmolality and hyponatremia; R79.89 Other specified abnormal findings of blood chemistry; E83.119 Hemochromatosis, unspecified; E78.1 Pure hyperglyceridemia; I10 Essential (primary) hypertension; Z11.59 Encounter for screening for other viral diseases
CPT/HCPCS: 80053; 80061; 82607; 82728; 82746; 83036; 83540; 83550; 83735; 85025; 86803; G0103

== ENCOUNTER → 2024-02-03 09:05 | Outpatient (CLI) | payer MEDICARE, SELFPAY ==
[2024-02-03 19:52] LABS: HEMOLYSIS < 15 (0-50); Iron 167 ug/dL (49-181)
[2024-02-03 20:09] LABS: Total Iron Binding Capacity 204 ug/dL (261-462); Transferrin 183 mg/dL (206-381)
[2024-02-03 20:11] LABS: Percent Iron Saturation 82 % (20-50)
[2024-02-03 20:33] LABS: Ferritin 29 ng/mL (18-464)
== END ==
PROVIDERS: PCP Physician Assistant; Visit Provider Physician Assistant
DX: E83.119 Hemochromatosis, unspecified (principal)
CPT/HCPCS: 82728; 83540; 83550

== ENCOUNTER → 2024-03-09 11:26 | Outpatient (CLI) | payer MEDICARE, OTHER, SELFPAY ==
--- NOTE | 2024-03-09 11:32 | DI.MRI.S_ITS ---
PROCEDURE: MR LUMBAR SPINE WO CON INDICATIONS: Worsening lower extremity weakness and numbness and tingling TECHNIQUE: Noncontrast sagittal T1 spin echo and T2 fast echo, sagittal STIR, and T2 fast spin echo through the lumbar spine. In cases with scoliosis, additional coronal T2 fast spin echo may be performed. COMPARISON: [facility], MR, MR LUMBAR SPINE WO CON, 07/24/2020, 12:12. FINDINGS: Image quality: Excellent. Alignment and Curvature: Minimal dextrocurvature. Trace retrolisthesis of L1 on L2. Trace anterolisthesis of L4 on L5. Bone Marrow: Marrow is of normal overall signal. No acute vertebral body compression fractures. Spinal Cord: Conus medullaris terminates at the L1 level. Visualized cord demonstrates normal signal and size. Paraspinous Soft Tissues: No paravertebral masses. T12-L1: Minimal disc bulge. Facet hypertrophy. No significant canal stenosis. Kvkv-xt-slzrtnog bilateral foraminal stenosis. L1-L2: Progressive findings. Trace retrolisthesis, as previous. Facet and ligament hypertrophy. Epidural lipomatosis. Moderate canal stenosis. Wust-qi-bgwlucjz right foraminal narrowing and moderate left foraminal narrowing. L2-L3: Progressive findings. Interval increase in chronic disc height loss. Posterior disc bulge. Facet and ligament hypertrophy. Epidural lipomatosis. Severe canal stenosis. Reference sagittal image 10 of series 2 and axial image 16 of series 6. Sqfb-fz-yhwfybyc right foraminal narrowing. Severe left foraminal narrowing with left foraminal L2 nerve root impingement. This is progressed. Reference sagittal image 13 of series 2. L3-L4: Progressive findings. Underlying congenitally short pedicles. Disc bulge. Exuberant facet and ligament hypertrophy. High-grade canal stenosis. Reference sagittal image 12 of series 2 and axial image 21 of series 6. Ueyv-bx-zlyabvmm right foraminal narrowing and moderate left foraminal narrowing. L4-L5: Progressive findings. Underlying congenitally short pedicles. Trace anterolisthesis of L4 on L5. Exuberant facet and ligament hypertrophy. High-grade canal stenosis. Reference sagittal image 12 of series 2 and angled axial image 15 of series 7. Moderate bilateral foraminal narrowing. L5-S1: Progressive findings. Underlying congenitally short pedicles. Disc bulge with superimposed mild broad-based left paracentral disc protrusion, as before. Facet and ligament hypertrophy. Moderate canal stenosis. As before, there is focal right foraminal disc protrusion with impingement on the right L5 nerve root in the right foramen. Reference sagittal image 9 of series 2. IMPRESSION: 1. Interval progression at multiple levels, from L2-L3 through L5-S1. 2. 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 3. Canal stenosis is moderate at L1-L2, severe at L2-L3, high-grade at L3-L4, high-grade at L4-L5, and moderate at L5-S1. 4. Significant multilevel foraminal narrowing as described above. Findings include severe left foraminal narrowing at L2-L3 and severe right foraminal narrowing at L5-S1. Dictated by: Afshin Falcon M.D. on 03/09/2024 at 12:37 Approved by: Afshin Falcon M.D. on 03/09/2024 at 12:48
== END ==
PROVIDERS: PCP Physician Assistant; Referring Provider Physician Assistant; Visit Provider Physician Assistant
DX: M47.817 Spondylosis without myelopathy or radiculopathy, lumbosacral region (principal); M47.816 Spondylosis without myelopathy or radiculopathy, lumbar region; M48.061 Spinal stenosis, lumbar region without neurogenic claudication; M48.07 Spinal stenosis, lumbosacral region
CPT/HCPCS: 72148

== ENCOUNTER → 2024-07-04 09:57 | Outpatient (CLI) | payer MEDICARE, OTHER, SELFPAY ==
[2024-07-04 19:28] LABS: Add Manual Diff / Slide Review NO; Basophils Absolute Auto 0 /uL (0-100); Basophils Percent Auto 0.5 % (0-2); Eosinophils Absolute Auto 100 /uL (0-450); Eosinophils Percent Auto 1.9 % (2-4); Hematocrit 40.4 % (41-53); Hemoglobin 14.3 g/dL (13.5-17.5); Lymphocytes Absolute Auto 1600 /uL (1100-4500); Lymphocytes Percent Auto 24.8 % (25-40); Mean Corpuscular HGB Conc 35.3 % (30-36); Mean Corpuscular Hemoglobin 31.6 PG (26-34); Mean Corpuscular Volume 89.4 fL (80-100); Monocytes Absolute Auto 800 /uL (0-900); Monocytes Percent Auto 11.5 % (3-14); Neutrophils Absolute Auto 4000 /uL (1500-7000); Neutrophils Percent Auto 61.3 % (50-75); Platelet Count 236 X10^3/uL (150-400); Red Blood Cell Count 4.52 X10^6/uL (4.5-5.9); Red Cell Distribution Width 12.8 % (11.6-14.8); White Blood Cell Count 6.6 X10^3/uL (4.5-11.0)
[2024-07-04 19:49] LABS: Alanine Aminotransferase 35 IU/L (<50); Albumin 4.1 g/dL (3.5-5.0); Albumin Globulin Ratio 1.6 (1.0-2.8); Alkaline Phosphatase 64 U/L (38-126); Aspartate Aminotransferase 51 IU/L (17-59); BUN Creatinine Ratio 23.1 (6-22); Bilirubin Total 0.7 mg/dL (0.2-1.3); Blood Urea Nitrogen 21 mg/dL (9-20); Calcium 9.8 mg/dL (8.4-10.2); Carbon Dioxide 30 mmol/L (22-32); Chloride 100 mmol/L (98-107); Estimated Glomerular Filt Rate > 60 mL/min (>60); Globulin 2.5 g/dL (1.7-4.1); Glucose 107 mg/dL (70-99); HEMOLYSIS < 15 (0-50); Potassium 4.3 mmol/L (3.4-5.1); Sodium 136 mmol/L (137-145); Total Protein 6.6 g/dL (6.3-8.2)
[2024-07-04 20:21] LABS: Ferritin 30 ng/mL (18-464)
== END ==
PROVIDERS: PCP Physician Assistant; Visit Provider Physician Assistant
DX: E83.119 Hemochromatosis, unspecified (principal)
CPT/HCPCS: 80053; 82728; 85025

== ENCOUNTER → 2024-12-29 12:27 | Outpatient (CLI) | payer MEDICARE, OTHER, SELFPAY ==
[2024-12-29 13:45] LABS: Add Manual Diff / Slide Review NO; Hematocrit 39.2 % (41-53); Hemoglobin 14.0 g/dL (13.5-17.5); Lymphocytes Absolute Auto 800 /uL (1100-4500); Mean Corpuscular HGB Conc 35.7 % (30-36); Mean Corpuscular Hemoglobin 31.7 PG (26-34); Mean Corpuscular Volume 88.7 fL (80-100); Platelet Count 203 X10^3/uL (150-400)
[2024-12-29 14:19] LABS: HEMOLYSIS < 15 (0-50); Iron 168 ug/dL (49-181)
[2024-12-29 14:25] LABS: Alanine Aminotransferase 29 IU/L (<50); Albumin 4.3 g/dL (3.5-5.0); Albumin Globulin Ratio 1.6 (1.0-2.8); Alkaline Phosphatase 56 U/L (38-126); Blood Urea Nitrogen 29 mg/dL (9-20); Calcium 9.6 mg/dL (8.4-10.2); Carbon Dioxide 27 mmol/L (22-32); Chloride 101 mmol/L (98-107); Estimated Glomerular Filt Rate > 60 mL/min (>60); Globulin 2.7 g/dL (1.7-4.1); Glucose 99 mg/dL (70-99); HEMOLYSIS < 15 (0-50); Potassium 4.4 mmol/L (3.4-5.1); Sodium 137 mmol/L (137-145); Total Protein 7.0 g/dL (6.3-8.2)
[2024-12-29 14:29] LABS: Total Iron Binding Capacity 219 ug/dL (261-462); Transferrin 181 mg/dL (206-381)
[2024-12-29 14:43] LABS: Percent Iron Saturation 77 % (20-50)
[2024-12-29 15:11] LABS: Vitamin B12 600 pg/mL (239-931)
[2024-12-29 20:37] LABS: Ferritin 36 ng/mL (18-464)
== END ==
PROVIDERS: PCP Physician Assistant; Referring Provider Physician Assistant; Visit Provider Physician Assistant
DX: E83.119 Hemochromatosis, unspecified (principal); Z12.5 Encounter for screening for malignant neoplasm of prostate; Z79.899 Other long term (current) drug therapy; I10 Essential (primary) hypertension; G62.9 Polyneuropathy, unspecified
CPT/HCPCS: 36415; 80053; 82607; 82728; 83540; 83550; 85025; G0103

== ENCOUNTER → 2025-01-23 12:25 | Outpatient (CLI) | payer MEDICARE, OTHER, SELFPAY ==
--- NOTE | 2025-01-23 12:27 | DI.US.S_ITS ---
PROCEDURE: US ABD AORTA ANEURYSM SCREEN INDICATIONS: Screening TECHNIQUE: Real time scanning was performed of the aorta and iliac arteries, with image documentation. COMPARISON: [facility], MR, MR LUMBAR SPINE WO CON, 03/09/2024, 11:47. FINDINGS: Aorta: Proximal aortic diameter measures 2.7 x 2.5 cm. Mid-aorta measures 2.1 x 2 cm. Distal aortic diameter is 2 x 2.1 cm. Iliac arteries: Right common iliac artery measures 1.2 x 1.4 cm. Left common iliac artery measures 1.1 x 1.3 cm. IMPRESSION: Ectasias of the proximal intra-abdominal aorta, recommend follow-up ultrasound in 5 years. Dictated by: Holden Amaya M.D. on 01/23/2025 at 14:47 Approved by: Holden Amaya M.D. on 01/23/2025 at 14:49
== END ==
LOC: US 12:27
PROVIDERS: PCP Physician Assistant; Referring Provider Physician Assistant; Visit Provider Physician Assistant
DX: Z13.6 Encounter for screening for cardiovascular disorders (principal); I77.811 Abdominal aortic ectasia
CPT/HCPCS: 76706